=== PATIENT | male | born 1950 | race Caucasian/White ===

== ENCOUNTER 2017-09-18 19:21 | Inpatient (IN) | payer OTHER ==
[~2017-09-18] VITALS: Ht 172.7 cm; Wt 95.3 kg
[~2017-09-18 19:21] MED LIST: AMOXICILLIN875 M1 PO; BACTRIM DS TAB1 EACH PO
[2017-09-18 19:53] LABS: ABSOLUTE BASOPHIL COUNT 0 /CUMM (0.0-0.2); ABSOLUTE EOSINOPHIL COUNT 0.9 /CUMM (0.0-0.7); ABSOLUTE GRANULOCYTE CT 6.3 /CUMM (1.4-6.5); ABSOLUTE LYMPH COUNT 3.3 /CUMM (1.2-3.4); BASOPHIL % 0.4 % (0.0-2.0); EOSINOPHIL % 7.4 % (0-5); HEMATOCRIT 46.1 % (42-52); MEAN CORPUSCULAR HGB 30.3 PG (27.0-31.0); MEAN CORPUSCULAR HGB CONC 32.8 G/DL (33.0-37.0); MEAN CORPUSCULAR VOLUME 92.1 FL (80.0-94.0); MEAN PLATELET VOLUME 7.3 FL (7.4-10.4); PLATELET COUNT 473 /CUMM (130-400); WHITE BLOOD CELL COUNT 11.5 /CUMM (4.8-10.8)
--- NOTE | 2017-09-18 20:09 | ED DYSPNEA/ASTHMA COMPLAINT ---
History of Present Illness General Chief Complaint: General Adult Stated Complaint: SOB Source: patient, family Exam Limitations: no limitations Vital Signs & Intake/Output Vital Signs & Intake/Output Vital Signs Date Time Temp Pulse Resp B/P B/P Pulse O2 O2 Flow FiO2 Mean Ox Delivery Rate 09/18 2200 94 18 140/78 97 Nasal 2.0L Cannula 09/188 98 Nasal 2.0L Cannula 09/18 2022 98 Nasal 2.0L Cannula 09/18 1924 98.1 77 24 192/87 92 Room Air Allergies Coded Allergies: NO KNOWN ALLERGIES (NONE 09/02/17) Reconcile Medications Albuterol Sulfate (Proair Hfa) 90 MCG HFA.AER.AD 2 PUF INH Q4-6 PRN PRN COPD (Reported) Umeclidinium Brm/Vilanterol Tr (Anoro Ellipta 62.5-25 Mcg INH) 62.5 MCG-25 MCG/ ACTUATION BLST.W.DEV COPD (Reported) Triage Note: REPORTS SOB THAT STARTED YESTERDAY. REPORTS + HX OF COPD. 92% AT [facility]. Triage Nurses Notes Reviewed? yes HPI: Patient presents with increasing shortness of breath and wheezing. Patient has also had a nonproductive cough. Patient is in the process of being worked up for probable COPD. Patient has been using his inhalers without any relief. Patient denies any orthopnea however states that when he is laying down he feels he can't breathe secondary to the wheezing and nonproductive cough and that he feels better while sitting up but he denies any feelings of drowning or being choked. Patient denies any chest pain or palpitations. Patient has had some chills but no fevers. There is no anorexia. There is no nausea or vomiting. Past History Travel History Traveled to [place] past 21 day No Medical History Any Pertinent Medical History? see below for history Respiratory: COPD Endocrine: diabetes Surgical History Surgical History: non-contributory Psychosocial History What is your primary language Par[place]ayan Tobacco Use: Quit >30 days ago ETOH Use: occasional use Illicit Drug Use: denies illicit drug use Family History Hx Contributory? No Review of Systems Review of Systems Constitutional: Reports: no symptoms. EENTM: Reports: no symptoms. Respiratory: Reports: see HPI, short of breath, wheezing. Cardiovascular: Reports: no symptoms. GI: Reports: no symptoms. Genitourinary: Reports: no symptoms. Musculoskeletal: Reports: no symptoms. Skin: Reports: no symptoms. Neurological/Psychological: Reports: no symptoms. Hematologic/Endocrine: Reports: no symptoms. Immunologic/Allergic: Reports: no symptoms. All Other Systems: Reviewed and Negative Physical Exam Physical Exam General Appearance: well developed/nourished, alert, awake, anxious, moderate distress Respiratory: decreased breath sounds, wheezing Core Measures ACS in differential dx? No CVA/TIA Diagnosis No Sepsis Present: No Sepsis Focused Exam Completed? No Progress Differential Diagnosis: asthma, AMI, bronchitis, CHF, COPD, pulmonary embolism, pneumonia, pneumothorax Plan of Care: Orders Procedure Date/time Status Regular Diet 09/19 B Active Patient Data 09/18 2252 Active Intake & Output 09/18 2249 Active ED Holding Orders 09/18 2241 Active Admit to inpatient 09/18 2241 Active Vital Signs 09/18 2241 Active Code Status 09/18 2241 Active BLOOD CULTURE 09/18 2210 Active URINALYSIS 09/18 1946 Active MIXED VENOUS BLOOD GAS (GEN) 09/18 1930 Active TROPONIN LEVEL 09/18 1930 Complete CBC WITHOUT DIFFERENTIAL 09/18 1930 Complete BASIC METABOLIC PANEL 09/18 1930 Complete EKG 09/18 1920 Active Laboratory Tests 09/18/171944: Anion Gap 10, Estimated GFR > 60, BUN/Creatinine Ratio 28.8 H, Glucose 125 H, Calcium 9.0, Troponin I < 0.01, CBC w Diff NO MAN DIFF REQ, RBC 5.00, MCV 92.1, MCH 30.3, MCHC 32.8 L, RDW 14.0, MPV 7.3 L, Gran % 55.0, Lymphocytes % 28.7, Monocytes % 8.5, Eosinophils % 7.4 H, Basophils % 0.4, Absolute Granulocytes 6.3, Absolute Lymphocytes 3.3, Absolute Monocytes 1.0 H, Absolute Eosinophils 0.9, Absolute Basophils 0 Microbiology 09/18 2049 BLOOD: Blood Culture - RECD 09/18 2034 BLOOD: Blood Culture - RECD Diagnostic Imaging: Viewed by Me: Radiology Read. Discussed w/RAD: Radiology Read. CXR Impression: PATIENT: SIRIA DRAKE PRESENT AGE: 67 PATIENT ACCOUNT NO: [id number] : 52 LOCATION: [facility] [place] ORDERING PHYSICIAN: Olga LOYA SERVICE DATE: 09/18/17 EXAM TYPE: RAD - XRY-CHEST XRAY, TWO VIEWS EXAMINATION: XR CHEST CLINICAL INFORMATION: Cough and shortness of breath COMPARISON: None TECHNIQUE: 2 views of the chest were obtained. FINDINGS: No significant abnormality is noted involving the heart, lungs, mediastinum, bony thorax or soft tissues. IMPRESSION: Unremarkable examination. DICTATED BY: Mak Jules MD DATE/TIME DICTATED:09/18/172126 PATIENT TRANSPORTATION DRIVER :ENID DATE/TIME TRANSCRIBED:09/18/172126 CONFIDENTIAL, DO NOT COPY WITHOUT APPROPRIATE AUTHORIZATION. <Electronically signed in Other Vendor System> SIGNED BY: Mak Jules MD 09/18/172131 Initial ED EKG: NSR, no ST T wave changes Departure Departure Disposition: STILL A PATIENT Condition: Stable Clinical Impression Primary Impression: COPD exacerbation Referrals: Sander Morales MD (PCP/Family) Departure Forms: Customer Survey General Discharge Information Admission Note Spoke With: Javed Romano MD Documentation of Exam: Documentation of any treatments & extenuating circumstances including Concerns Regarding Discharge (functional status, medication knowledge or non-compliance, living conditions, etc.) that warrant an admission rather than observation: [ Nebulizers, IV steroids, IV antibiotics, pulmonary consultation, patient is still wheezing despite the above treatments. Patient is at high risk for early discharge.] Critical Care Note Critical Care Note Critical Care Time: non-applicable
--- NOTE | 2017-09-18 21:32 | RADIOLOGY REPORT ---
EXAMINATION: XR CHEST CLINICAL INFORMATION: Cough and shortness of breath COMPARISON: None TECHNIQUE: 2 views of the chest were obtained. FINDINGS: No significant abnormality is noted involving the heart, lungs, mediastinum, bony thorax or soft tissues. IMPRESSION: Unremarkable examination.
[2017-09-18] MEDS ORDERED: PROAIR HFA8.5 GM INH (23:10)
[2017-09-18] MEDS ORDERED: ANORO ELLIPTA1 EACH (23:10)
--- NOTE | 2017-09-18 23:13 | History & Physical ---
Fanta Hernandez 09/18/17 9822: General Information and HPI MD Statement: I have seen and personally examined SIRIA RUTHERFORD and documented this H&P. The patient is a 67 year old M who presented with a patient stated chief complaint of [SOB]. Source of Information: patient, old records Exam Limitations: no limitations History of Present Illness: Mr. Rutherford is a 67yo M w/ PMH of COPD, Pre-diabetes (last HbA1c 6.1), presented with shortness of breath with productive cough for 1 day started Monday afternoon while shopping. Patient had no previous pulmonary function done or previous admissions including hospital for COPD, and is currently in the process of being worked up for possible COPD. He sees Dr. 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 Recent had new dog after the old dog . He had previous episodes of Pneumonia/bronchitis x 3 times in the year, and had been had difficulty breathing history since 03/2017. Patient had been trying to use his inhalers without relief at home. However denied in orthopnea, however stated that when he was lying down he could not breathe secondary to wheezing. No previous echo was found in the system. Patient also endorsed nonproductive coughing that he felt better when he sits up. Patient with some chills but denies any fevers. Last night at home he was coughing up badly with whitish sputum that kept him not sleeping well. Patient was last seen in [place] [facility] in August for left upper extremity swelling which no DVT was found. She was last seen in 2013 for fall on ice where head CT showed no remarkable findings. During our clinical interaction, patient denied fever/night sweat/weight change/ Chest Pain/Palpitation/Abdominal pain/bowel movement/urinary abnormality, or other skin/musculoskeletal/neurological disorders/mood change/insomnia/dietary/ appetite change. -Smoking: Quitted x 1 month after smoking x 10 years, smoked 4-5 cigars daily. -Alcohol: Occasional use -Rec Drugs: Denied recent drug use Allergies/Medications Allergies: Coded Allergies: NO KNOWN ALLERGIES (NONE 09/02/17) Home Med list Albuterol Sulfate (Proair Hfa) 90 MCG HFA.AER.AD 2 PUF INH Q4-6 PRN PRN COPD (Reported) Lisinopril 5 MG TABLET 1 TAB PO DAILY PRECAUTION PER PT (Reported) Metformin HCl (Metformin HCl ER) 500 MG TAB.ER.24 1 TAB PO DAILY DIABETES ( Reported) Umeclidinium Brm/Vilanterol Tr (Anoro Ellipta 62.5-25 Mcg INH) 62.5 MCG-25 MCG/ ACTUATION BLST.W.DEV COPD (Reported) Past History Travel History Traveled to [place] past 21 day No Medical History Respiratory: COPD Endocrine: diabetes Surgical History Surgical History: non-contributory Past Family/Social History Psychosocial History ETOH Use: occasional use Illicit Drug Use: denies illicit drug use Review of Systems Review of Systems Constitutional: Reports: see HPI. Exam & Diagnostic Data Last 24 Hrs of Vital Signs/I&O Vital Signs Date Time Temp Pulse Resp B/P B/P Pulse O2 O2 Flow FiO2 Mean Ox Delivery Rate 09/18 2333 98.3 76 20 150/77 96 Nasal 2.0L Cannula 09/18 2200 94 18 140/78 97 Nasal 2.0L Cannula 09/188 98 Nasal 2.0L Cannula 09/18 2022 98 Nasal 2.0L Cannula 09/18 1924 98.1 77 24 192/87 92 Room Air Intake & Output 09/19 0800 09/19 0000 09/18 1600 Intake Total 530 Output Total Balance 530 Intake, IV 250 Intake, Oral 280 Patient 95.254 kg Weight Weight Reported by Patient Measurement Method Physical Exam General Appearance Alert, Oriented X3, Cooperative, No Acute Distress Skin No Rashes, No Breakdown, No Significant Lesion Skin Temp/Moisture Exam: Warm/Dry Sepsis Skin Exam (color): Normal for Ethnicity HEENT Atraumatic, PERRLA Neck Supple, No JVD Cardiovascular Regular Rate, Normal S1, Normal S2 Lungs Normal Air Movement, scattered wheezing Abdomen Normal Bowel Sounds, Soft, No Tenderness Neurological Normal Speech, Strength at 5/5 X4 Ext Extremities Normal Pulses, No Tenderness/Swelling, Trace edema Last 24 Hrs of Labs/Saeid: Laboratory Tests 09/18/17 6054: Urine Color YEL, Urine Clarity CLEAR, Urine pH 6.0, Ur Specific [place] 1.020, Urine Protein NEG, Urine Ketones TRACE H, Urine Nitrite NEG, Urine Bilirubin NEG, Urine Urobilinogen 0.2, Ur Leukocyte Esterase NEG, Ur Microscopic SEDIMENT EXAMINED, Urine RBC Pending, Urine Hemoglobin TRACE-INTACT H, Urine Glucose NEG 09/18/171944: Anion Gap 10, Estimated GFR > 60, BUN/Creatinine Ratio 28.8 H, Glucose 125 H, Calcium 9.0, Troponin I < 0.01, CBC w Diff NO MAN DIFF REQ, RBC 5.00, MCV 92.1, MCH 30.3, MCHC 32.8 L, RDW 14.0, MPV 7.3 L, Gran % 55.0, Lymphocytes % 28.7, Monocytes % 8.5, Eosinophils % 7.4 H, Basophils % 0.4, Absolute Granulocytes 6.3, Absolute Lymphocytes 3.3, Absolute Monocytes 1.0 H, Absolute Eosinophils 0.9, Absolute Basophils 0 Microbiology 09/18 2049 BLOOD: Blood Culture - RECD 09/18 2034 BLOOD: Blood Culture - RECD Diagnostic Data EKG Results NSR Assessment/Plan Assessment: On admission, Vitals: Stable afebrile, HR 94, BP 140/78, 97% on 2LNC -CBC: Mild leukocytosis 11.5, PLT 473, otherwise unremarkable -BMP: Unremarkable -CXR: Unremarkable examination -EKG: NSR w/o significant ST-T abnormalities. -Interventions in ER: Albuterol/Atrovent/Proventil, ceftriaxone/azithromycin 1, Solu-Medrol 125 IV 1 Problem list & Assessment: Present with clinical picture of COPD exacerbation, however without any official diagnosis from the previous pulmonary function test. ER portable x-ray showed no acute pulmonary findings at this point. Patient had no signs of infection/ pneumonia/bronchitis despite multiple episodes in the past. At this point will treat for COPD extubation, and may contact the insole presser outpatient for test results if needed. 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 DVT prophylaxis Lovenox + ALPS Regular Diet Full Code As Ranked By This Provider Problem List: 1. COPD exacerbation Core Measures/Misc (01/29) Acute Coronary Syndrome ACS Diagnosis: No Congestive Heart Failure Congestive Heart Failure Diagnosis No Cerebrovascular Accident CVA/TIA Diagnosis: No VTE (View Protocol) VTE Risk Factors Age>40 No Mechanical VTE Prophylaxis d/t N/A MechProphylax Ordered No VTE Pharm Prophylaxis d/t NA PharmProphylax ordered Sepsis (View protocol) Sepsis Present: No Landon Jones 09/19/17 0131: Resident Review Statement Resident Statement: examined this patient, discussed with recruiting intern Other Findings: Patient is a 67-year-old male with past medical history of COPD(recently diagnosed), prediabetes, recurrent bronchitis and pneumonia presented to the ED with a chief complaint of worsening shortness of breath and productive cough for one day. Patient reports that he started having shortness of breath started around Monday while he was shopping. He had cough with productive white sputum. His symptoms worsened over the weekend and he was forced to come to the ED. Patient has been recently diagnosed COPD and has been following up with insole presser Dr. Ho in [place]. Recent pulmonary function tests done in August. He had recurrent bronchitis and 2 episodes of pneumonia since March last year. He has been have been using inhalers since that time however his shortness of breath never went away completely. He recently got a new dog about 3 weeks back which could have also stimulated the COPD attack. Patient is an ex-smoker, quit about a month back. Was smoking about 4 cigarettes for the past 10 years. 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 He handled a lot of chemicals while working in the the [employer] industry. reports that his insole presser recently mentioned appearance of asbestos plaques on the chest x-ray. Patient denies any chest pain, palpitations, nausea, vomiting, abdominal pain, urinary or bowel symptoms. He was recently seen in the ER on 09/08 for left hand cellulitis and was given a course of Bactrim which the patient completed. Vitals in the ED at admission was significant for high blood pressure 192/87. Labs: , White count of 11.5 with no left shift, troponin 0.01 Chest x-ray was unremarkable Physical examination General: Awake, alert, oriented 3, no acute distress HEENT PERRLA, EOMI, nasal cannula Chest: Bilateral expiratory wheezes, rhonchi CVS: S1 and S2 heard, no murmurs Abdomen: BS positive, no tenderness Extremities: No edema, pulses intact Assessment Acute hypoxic respiratory failure secondary to COPD exacerbation Occupational exposure to asbestos/multiple chemicals Recent exposure to new Prediabetes Hypertension Plan Admit to [facility] Vitals per protocol Maintain oxygen saturation above 92% TR nebs [id number] Received IV Solu-Medrol in the day. Continue Solu-Medrol 40 every12 hrs IV Azithromycin daily No signs of infection at this time. Will watch off antibiotics. PFTs done in August. Try to get old records from insole presser Dr. Vela' office in [place] 3 times a day Accu-Cheks, NovoLog sliding scale Continue lisinopril for high blood pressure DVT prophylaxis subcutaneous Lovenox Full code Javed Romano 09/19/17 0528: Attending MD Review Statement Attending Statement Attending MD Statement: examined this patient, discuss w/resident/PA/[employer] CREWMEMBER, agreed w/resident/PA/[employer] CREWMEMBER, reviewed EMR data (avail), reviewed images, amended to note Attending Assessment/Plan: CC: Shortness of breath PMH: Prediabetes,? HTN Patient came to ER for shortness of breath. He states that he's been noticing increasing shortness of breath and wheezing since last few days, associated with nonproductive cough. He denies any chest pain, chest tightness, palpitation, diaphoresis, fever, chills, syncope or presyncope, orthopnea, leg edema. Patient states that he has been dealing with the shortness of breath since March, is under investigation for suspected COPD and/or asbestos lung disease. Patient underwent pulmonary function test and yet to hear back the results. Meanwhile he was started on inhaler therapy by the insole presser. He was using a rescue inhaler at home for this current worsening of shortness of breath without much relief. Patient states that he has been treated for bronchitis at least 4 times since March, he also had pneumonia in March. He states that he takes lisinopril for her kidneys given his prediabetes but denies having hypertension. He also has seasonal allergies to pollen and asthma Vitals: Temperature 98.1, pulse 77, RR 24, blood pressure 192/87 improved to 140 /78 without treatment, saturating 92% on 2 L nasal cannula. On exam: A O 3, cooperative, no acute distress, neck supple, JVD normal, no lymphadenopathy, mucosa moist, no focal neurological deficit, no dependent edema , no obvious skin rashes or inflammation CVS: S1-S2, RRR. RS: Diminished air entry bilaterally, no obvious wheezing or crackles or Rales. Abdomen: Soft, NT, ND, bowel sounds present. CXR: No acute cardiopulmonary process Assessment and plan 67-year-old male with above-mentioned comorbidities present in ER for acute worsening of shortness of breath associated with nonproductive cough and wheezing since last few days. He has baseline shortness of breath since last March and is under investigation for restrictive/obstructive lung disease. Patient appears to have exacerbation of underlying lung disease. He also has seasonal allergies to pollen and asthma. He has extensive smoking history but also has exposure to asbestosis as he was in construction specialist for more than 35 years. His air entry is diminished bilaterally, requiring 2 L nasal cannula to saturate 92%, he was wheezing according to ER physician. + COPD exacerbation + History of prediabetes - Admit to general medicine - Try to wean off oxygen - IV methylprednisolone 40 mg every 12 hour - IV azithromycin - TRC nebulization with albuterol and ipratropium scheduled and when necessary - Mucinex scheduled twice a day - Continue home doses of lisinopril, continue sliding scale insulin hold metformin - Adequate pain control - DVT prophylaxis - Outpatient pulmonology follow-up
[2017-09-18] MEDS ORDERED: LISINOPRIL5 M1 PO (23:22)
[2017-09-18] MEDS ORDERED: METFORMIN HCL500 M2 PO (23:22)
[2017-09-19 01:08] VITALS: BP 148/72
--- NOTE | 2017-09-19 05:29 | Admission Certification ---
Admission Certification Certification Statement - As attending physician, I certify that at the time of - admission, based on clinical presentation, severity of - symptoms, need for further diagnostic testing and - therapeutic interventions, and risk of adverse outcomes - without in-hospital treatment, in my clinical assessment, - this patient requires an acute hospital stay for a minimum - of two nights or longer. I have also considered psychsocial - factors such as support system, advanced age, financial - issues, cognitive issues, and failed out-patient treatments, - past re-admission history, safety of patient, and lack of - compliance as applicable. Specific rationale supporting this admission is: COPD exacerbation
[2017-09-19 06:41] VITALS: BP 136/68
--- NOTE | 2017-09-19 07:44 | PN- Housestaff ---
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 He states that he is feeling better since admission. Vitals are stable overnight and he is satting 94% on 2L. He is ambulated and sats 93% on room air. Denies cough, chest pain, dyspnea. Review of Systems Constitutional: Reports: no symptoms. Cardiovascular: Reports: no symptoms. Respiratory: Reports: no symptoms. Gastrointestinal: Reports: no symptoms. Genitourinary: Reports: no symptoms. Musculoskeletal: Reports: no symptoms. Skin: Reports: no symptoms. Objective Last 24 Hrs of Vital Signs/I&O Vital Signs Date Time Temp Pulse Resp B/P B/P Pulse O2 O2 Flow FiO2 Mean Ox Delivery Rate 09/19 1414 97.8 63 20 130/70 95 Room Air 09/19 1144 Room Air Room Air 09/19 0832 138/80 09/19 0800 Nasal 2.0L Cannula 09/19 0641 97.5 68 20 136/68 94 Nasal 2.0L Cannula 09/19 0120 96 Nasal 2.0L Cannula 09/19 0108 97.4 73 20 148/72 96 Nasal 2.0L Cannula 09/18 2333 98.3 76 20 150/77 96 Nasal 2.0L Cannula 09/18 2200 94 18 140/78 97 Nasal 2.0L Cannula 09/18 2118 98 Nasal 2.0L Cannula 09/18 2023 98 Nasal 2.0L Cannula 09/18 1925 98.1 77 24 192/87 92 Room Air Intake & Output 09/19 1600 09/19 0800 05/08 0000 Intake Total 360 530 Output Total Balance 360 530 Intake, IV 250 Intake, Oral 360 280 Patient 210 lb 210 lb Weight Weight Reported by Patient Reported by Patient Measurement Method Physical Exam General Appearance: Alert, Oriented X3, Cooperative, No Acute Distress Skin: No Rashes, No Breakdown, No Significant Lesion Skin Temp/Moisture Exam: Warm/Dry HEENT: Atraumatic, PERRLA, EOMI, Mucous Membr. moist/pink Cardiovascular: Regular Rate, Normal S1, Normal S2, No Murmurs Lungs: Clear to Auscultation Abdomen: Normal Bowel Sounds, Soft, No Tenderness Neurological: Normal Speech Current Medications: Current Medications Sig/Kelli Start time Last Medication Dose Route Stop Time Status Admin Acetaminophen 325 MG Q6 PRN 09/19 0100 AC PO Albuterol Sulfate 3 ML BID 09/19 1200 AC 09/19 INH 1148 Albuterol Sulfate 2 PUF Q4-6 PRN PRN 09/19 0045 AC INH Albuterol Sulfate 3 ML ONCE ONE 09/18 2114 DC 09/18 INH 09/19 2115 211 Albuterol Sulfate 3 ML ONCE ONE 09/19 1999 DC 09/18 INH 09/18 Azithromycin 250 MG DAILY 09/20 899 AC PO Azithromycin 500 MG DAILY 09/19 899 DC 09/19 Sodium Chloride 250 ML IV 0858 Azithromycin 500 MG ONCE ONE 09/18 2214 DC 09/18 Sodium Chloride 250 ML IV 09/18 2314 2223 Budesonide/ 2 PUF BID 09/19 899 AC 09/19 Formoterol Fumarate INH 0832 Ceftriaxone Sodium 0 .STK-MED ONE 09/18 2217 DC .ROUTE Ceftriaxone Sodium 1,000 MG ONCE ONE 09/18 2214 DC 09/18 IV 09/18 2216 2223 Enoxaparin Sodium 40 MG DAILY 09/19 899 AC 09/19 SC 0832 Insulin Aspart 0 TIDAC 09/20 799 AC 09/19 SC 1804 Ipratropium [place] 2.5 ML ONCE ONE 09/19 1999 DC 09/18 INH 09/18 Lisinopril 5 MG DAILY 09/19 899 AC 09/19 PO 0832 Methylprednisolone 40 MG Q12 09/19 0800 AC 09/19 IV 0832 Methylprednisolone 40 MG Q8 09/19 599 DC 09/19 IV 0523 Methylprednisolone 0 .STK-MED ONE 09/18 2033 DC .ROUTE Methylprednisolone 125 MG ONCE ONE 09/18 2014 DC 07 IV 09/18 Non-Formulary 0 SEE ADMIN CRITERIA 09/19 0045 CAN Medication ANY Patient Medication 1 ED ONE ONE 09/19 1814 MA Teaching ED 09/20 1815 Last 24 Hrs of Lab/Saeid Results Last 24 Hrs of Labs/Mics: Laboratory Tests 09/19/17 0803: CBC w Diff NO MAN DIFF REQ, RBC 4.92, MCV 92.2, MCH 30.1, MCHC 32.6 L, RDW 13.7 , MPV 7.9, Gran % 87.2 H, Lymphocytes % 12.1 L, Monocytes % 0.4 L, Eosinophils % 0.1, Basophils % 0.2, Absolute Granulocytes 7.4 H, Absolute Lymphocytes 1.0 L, Absolute Monocytes 0 L, Absolute Eosinophils 0, Absolute Basophils 0 09/18/172343: Urine Color YEL, Urine Clarity CLEAR, Urine pH 6.0, Ur Specific [place] 1.020, Urine Protein NEG, Urine Ketones TRACE H, Urine Nitrite NEG, Urine Bilirubin NEG, Urine Urobilinogen 0.2, Ur Leukocyte Esterase NEG, Ur Microscopic SEDIMENT EXAMINED, Urine RBC RARE, Urine Bacteria RARE H, Urine Hemoglobin TRACE-INTACT H, Urine Glucose NEG 09/18/171944: Anion Gap 10, Estimated GFR > 60, BUN/Creatinine Ratio 28.8 H, Glucose 125 H, Calcium 9.0, Troponin I < 0.01, CBC w Diff NO MAN DIFF REQ, RBC 5.00, MCV 92.1, MCH 30.3, MCHC 32.8 L, RDW 14.0, MPV 7.3 L, Gran % 55.0, Lymphocytes % 28.7, Monocytes % 8.5, Eosinophils % 7.4 H, Basophils % 0.4, Absolute Granulocytes 6.3, Absolute Lymphocytes 3.3, Absolute Monocytes 1.0 H, Absolute Eosinophils 0.9, Absolute Basophils 0 Microbiology 09/18 2049 BLOOD: Blood Culture - RES 09/18 2034 BLOOD: Blood Culture - RES Assessment/Plan Assessment: Patient is a 67-year-old male with past medical history of COPD (recently diagnosed), prediabetes, recurrent bronchitis and pneumonia that presented to the ED with a chief complaint of worsening shortness of breath and productive cough for one day. Patient reports that he started having shortness of breath three days ago food shopping. He states he also had cough with productive white sputum. Patient has been recently diagnosed COPD and has been following up with machine farmworker Dr. Ho in [place]. Recent pulmonary function tests done in August but patient unsure of exact results. He had recurrent bronchitis and 2 episodes of pneumonia since March last year and he has been have been using inhalers since that time however his shortness of breath never completely dissipated. He recently got a new dog about 3 weeks back which could have also stimulated the COPD attack. Patient is an ex-smoker, quit about a month back. Was smoking about 4 cigarettes for the past 10 years. 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 reports that his machine farmworker recently mentioned appearance of asbestos plaques on the chest x-ray. He was recently seen in the ER on 09/08 for left hand cellulitis and was given a course of Bactrim which the patient completed. Vitals: Stable afebrile, HR 94, BP 140/78, 97% on 2LNC. CXR: Unremarkable examination. Interventions in ER: Albuterol/Atrovent/Proventil, ceftriaxone/ azithromycin 1, Solu-Medrol 125 IV 1. Patient presents with clinical picture of COPD exacerbation, however without any official diagnosis from the previous pulmonary function test results. Negative CXR. Patient had no signs of infection/pneumonia/bronchitis despite multiple episodes in the past. Clinically appears to be a COPD exacerbation so we will at this point treat him as such. Patient also reports prediabetes and a HbA1c in the low 6's, reportedly takes metformin. Plan -Continue to monitor in gen med O2 sats -Azithromycin oral for 5 days DVT prophylaxis Lovenox + ALPS Regular Diet Full Code Problem List: 1. COPD exacerbation Pain Ratin Pain Location: na Pain Goal: Remain pain free Pain Plan: na Tomorrow's Labs & Rationales: cbc bep Zaire PALACIOS,Ben 09/19/17 1202: Attending MD Review Statement Attending Statement Attending MD Statement: examined this patient, discuss w/resident/PA/ENGINEERING FACULTY, agreed w/resident/PA/ENGINEERING FACULTY, discussed with family, reviewed EMR data (avail), discussed with nursing, discussed with case mgmt, amended to note Attending Assessment/Plan: Patient seen and examined. present at bedside. Reports feeling better compared to presentation. Denies chest pain or shortness of breath at rest. Denies palpitations. He is saturating 94-95% on room air. On examination he has adequate entry bilaterally with mild expiratory rhonchi. Abdomen soft and nontender. He has no peripheral edema. Plan: -Continue bronchodilator therapy. Continue systemic steroid therapy with Solu- Medrol IV every 12 hours today. -Mobilize patient and check ambulatory pulse oximetry. -Continue antibiotic therapy with azithromycin. Transition to oral dose and complete 5 days of therapy. -Repeat CBC and serum chemistry in a.m. only if there is a change in patient's clinical status.
[2017-09-19 09:02] LABS: ABSOLUTE BASOPHIL COUNT 0 /CUMM (0.0-0.2); ABSOLUTE EOSINOPHIL COUNT 0 /CUMM (0.0-0.7); ABSOLUTE GRANULOCYTE CT 7.4 /CUMM (1.4-6.5); ABSOLUTE MONOCYTE COUNT 0 /CUMM (0.10-0.60); BASOPHIL % 0.2 % (0.0-2.0); EOSINOPHIL % 0.1 % (0-5); HEMATOCRIT 45.4 % (42-52); MEAN CORPUSCULAR HGB 30.1 PG (27.0-31.0); MEAN CORPUSCULAR HGB CONC 32.6 G/DL (33.0-37.0); MEAN CORPUSCULAR VOLUME 92.2 FL (80.0-94.0); MEAN PLATELET VOLUME 7.9 FL (7.4-10.4); PLATELET COUNT 399 /CUMM (130-400); RBC DISTRIBUTION WIDTH 13.7 % (11.5-14.5); RED BLOOD CELL CT 4.92 /CUMM (4.70-6.10)
[2017-09-19 09:30] LABS: GRANULOCYTE % 87.2 % (42.2-75.2)
[2017-09-19 10:25] LABS: WHITE BLOOD CELL COUNT 8.5 /CUMM (4.8-10.8)
[2017-09-19 14:14] VITALS: BP 130/70
[2017-09-19 22:38] VITALS: BP 122/60
[2017-09-20 06:21] VITALS: BP 118/64
--- NOTE | 2017-09-20 07:36 | PN- Housestaff ---
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 He is on room air satting 94%. He notes a continued mild dry cough. Review of Systems Constitutional: Reports: no symptoms. Respiratory: Reports: cough. Objective Last 24 Hrs of Vital Signs/I&O Vital Signs Date Time Temp Pulse Resp B/P B/P Pulse O2 O2 Flow FiO2 Mean Ox Delivery Rate 09/20 1446 97.8 66 20 110/75 95 Room Air 09/20 1050 93 Room Air 09/20 0824 118/60 09/20 0621 97.5 65 20 118/64 94 Room Air 09/20 0000 Room Air 09/19 2238 98.1 84 20 122/60 91 Room Air 09/19 2012 94 Room Air Intake & Output 09/20 1600 09/20 0800 09/20 0000 Intake Total 200 120 300 Output Total Balance 200 120 300 Intake, Oral 200 120 300 Physical Exam General Appearance: Alert, Oriented X3, Cooperative, No Acute Distress Neck: Supple, No JVD Cardiovascular: Regular Rate, Normal S1, Normal S2, No Murmurs Lungs: mild wheezing on left Abdomen: Normal Bowel Sounds, Soft, No Tenderness Extremities: No Clubbing, No Cyanosis, No Edema Current Medications: Current Medications Sig/Kelli Start time Last Medication Dose Route Stop Time Status Admin Acetaminophen 325 MG Q6 PRN 09/19 0100 AC PO Albuterol Sulfate 3 ML BID 09/19 1200 AC 09/20 INH 1056 Albuterol Sulfate 2 PUF Q4-6 PRN PRN 09/19 0045 AC INH Azithromycin 250 MG DAILY 09/20 899 AC 09/20 PO 0824 Budesonide/ 2 PUF BID 09/19 899 AC 09/20 Formoterol Fumarate INH 0824 Enoxaparin Sodium 40 MG DAILY 09/19 899 AC 09/20 SC 0824 Insulin Aspart 0 TIDAC 09/20 799 AC 09/19 SC 1804 Lisinopril 5 MG DAILY 09/19 899 AC 09/20 PO 0824 Methylprednisolone 40 MG Q12 09/19 899 AC 09/20 IV 0824 Patient Medication 1 ED ONE ONE 09/20 1230 DC 09/20 Teaching ED 09/20 1231 1224 Patient Medication 1 ED ONE ONE 09/19 181 [facility] 09/19 181 Assessment/Plan Assessment: Patient is a 67-year-old male with past medical history of COPD (recently diagnosed), prediabetes, recurrent bronchitis and pneumonia that presented to the ED with a chief complaint of worsening shortness of breath and productive cough for one day. Patient reports that he started having shortness of breath three days ago food shopping. He states he also had cough with productive white sputum. Patient has been recently diagnosed COPD and has been following up with welt rougher Dr. Ho in [place]. Recent pulmonary function tests done in August but patient unsure of exact results. He had recurrent bronchitis and 2 episodes of pneumonia since March last year and he has been have been using inhalers since that time however his shortness of breath never completely dissipated. He recently got a new dog about 3 weeks back which could have also stimulated the COPD attack. Patient is an ex-smoker, quit about a month back. Was smoking about 4 cigarettes for the past 10 years. 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 reports that his welt rougher recently mentioned appearance of asbestos plaques on the chest x-ray. He was recently seen in the ER on 09/08 for left hand cellulitis and was given a course of Bactrim which the patient completed. Vitals: Stable afebrile, HR 94, BP 140/78, 97% on 2LNC. CXR: Unremarkable examination. Interventions in ER: Albuterol/Atrovent/Proventil, ceftriaxone/ azithromycin 1, Solu-Medrol 125 IV 1. Patient presents with clinical picture of COPD exacerbation, however without any official diagnosis from the previous pulmonary function test results. Negative CXR. Patient had no signs of infection/pneumonia/bronchitis despite multiple episodes in the past. Clinically appears to be a COPD exacerbation so we will at this point treat him as such. Patient also reports prediabetes and a HbA1c in the low 6's, reportedly takes metformin. Plan -Continue to monitor in gen med tomorrow O2 sats -Azithromycin oral for 5 days DVT prophylaxis Lovenox + ALPS Regular Diet Full Code Problem List: 1. COPD exacerbation Pain Ratin Pain Location: na Pain Goal: Remain pain free Pain Plan: na Tomorrow's Labs & Rationales: na [place] MD,Felicianoheribertosha 09/20/17 1249: Attending MD Review Statement Attending Statement Attending MD Statement: examined this patient, discuss w/resident/PA/REMOTE OPERATIONS PRODUCER, agreed w/resident/PA/REMOTE OPERATIONS PRODUCER, reviewed EMR data (avail), discussed with nursing, discussed with case mgmt, amended to note Attending Assessment/Plan: Patient seen and examined. Reports feeling better. e is not requiring oxygen supplementation. He denies sob at rest or with exertion. Denies chest schaeffer. On examination, he has adequate air-entry bilaterally with minimal rhonchi. Will continue solumedrol at current dose and transition to oral prednisone tomorrow.
[2017-09-20 14:46] VITALS: BP 110/75
[2017-09-20 22:55] VITALS: BP 124/80
[2017-09-21 06:54] VITALS: BP 134/76
[2017-09-21 08:42] VITALS: BP 126/80
--- NOTE | 2017-09-21 09:54 | PN- Housestaff ---
Rosalia PALACIOS,Paz 09/21/1754: Subjective Follow-up For: #COPD exacerbation pending rule out #Past medical history of pre-diabetes Subjective: patient seen and examined. no shortness of breath, no chest pain. Patient in bed eating breakfast. Review of Systems Constitutional: Reports: no symptoms. Cardiovascular: Reports: no symptoms. Respiratory: Reports: no symptoms. Gastrointestinal: Reports: no symptoms. Musculoskeletal: Reports: no symptoms. Objective Last 24 Hrs of Vital Signs/I&O Vital Signs Date Time Temp Pulse Resp B/P B/P Pulse O2 O2 Flow FiO2 Mean Ox Delivery Rate 09/21 0835 95 Room Air 09/21 0842 126/80 09/21 0800 Room Air 09/21 0654 97.6 64 16 134/76 97 Room Air 09/20 2255 98.0 68 18 124/80 94 Room Air 09/20 1927 94 Room Air Intake & Output 09/21 1600 09/21 0800 05 0000 Intake Total 300 500 Output Total Balance 300 500 Intake, Oral 300 500 Physical Exam General Appearance: Alert, Oriented X3, Cooperative, No Acute Distress Skin: No Rashes, No Breakdown, No Significant Lesion Skin Temp/Moisture Exam: Warm/Dry Sepsis Skin Exam (color): Normal for Ethnicity HEENT: EOMI, Mucous Membr. moist/pink Cardiovascular: Regular Rate, Normal S1, Normal S2, No Murmurs Lungs: Clear to Auscultation, Normal Air Movement Abdomen: Normal Bowel Sounds, Soft, No Tenderness Current Medications: Current Medications Sig/Kelli Start time Last Medication Dose Route Stop Time Status Admin Acetaminophen 325 MG Q6 PRN 09/19 0100 DCD PO Albuterol Sulfate 3 ML BID 09/20 1199 DCD 09/21 INH 0930 Albuterol Sulfate 2 PUF Q4-6 PRN PRN 09/19 0045 DCD INH Azithromycin 250 MG DAILY 09/20 899 DCD 09/21 PO 0842 Budesonide/ 2 PUF BID 09/19 899 DCD 09/21 Formoterol Fumarate INH 0842 Enoxaparin Sodium 40 MG DAILY 09/19 899 DCD 09/21 SC 0842 Insulin Aspart 0 TIDAC 09/20 799 DCD 09/21 SC 42 Lisinopril 5 MG DAILY 09/19 899 DCD 09/21 PO 0842 Methylprednisolone 40 MG ONCE ONE 09/21 929 DC 09/21 IV 09/21 0831 0940 Methylprednisolone 40 MG Q12 09/19 899 DC 09/20 IV 2028 Assessment/Plan Assessment: Patient is a 67-year-old male with past medical history of COPD (recently diagnosed), prediabetes, recurrent bronchitis and pneumonia that presented to the ED with a chief complaint of worsening shortness of breath and productive cough for one day. Patient reports that he started having shortness of breath three days ago food shopping. He states he also had cough with productive white sputum. Patient has been recently diagnosed COPD and has been following up with wood pole treater Dr. Ho in [place]. Recent pulmonary function tests done in August but patient unsure of exact results. He had recurrent bronchitis and 2 episodes of pneumonia since March last year and he has been have been using inhalers since that time however his shortness of breath never completely dissipated. He recently got a new dog about 3 weeks back which could have also stimulated the COPD attack. Patient is an ex-smoker, quit about a month back. Was smoking about 4 cigarettes for the past 10 years. 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 reports that his wood pole treater recently mentioned appearance of asbestos plaques on the chest x-ray. He was recently seen in the ER on 09/08 for left hand cellulitis and was given a course of Bactrim which the patient completed. Vitals: Stable afebrile, HR 94, BP 140/78, 97% on 2LNC. CXR: Unremarkable examination. Interventions in ER: Albuterol/Atrovent/Proventil, ceftriaxone/ azithromycin 1, Solu-Medrol 125 IV 1. Patient presents with clinical picture of COPD exacerbation, however without any official diagnosis from the previous pulmonary function test results. Negative CXR. Patient had no signs of infection/pneumonia/bronchitis despite multiple episodes in the past. Clinically appears to be a COPD exacerbation so we will at this point treat him as such. Patient also reports prediabetes and a HbA1c in the low 6's, reportedly takes metformin. Plan -Continue to monitor in gen med O2 sats -Azithromycin oral for 5 days, discharge with remaining 2 days DVT prophylaxis Lovenox + ALPS Regular Diet Full Code Problem List: 1. COPD exacerbation Pain Ratin Pain Location: na Pain Goal: Remain pain free Pain Plan: na Tomorrow's Labs & Rationales: farhan Tai MD,Ben 09/21/17 1136: Attending MD Review Statement Attending Statement Attending MD Statement: examined this patient, discuss w/resident/PA/STRATEGY SPECIALIST, agreed w/resident/PA/STRATEGY SPECIALIST, reviewed EMR data (avail), discussed with nursing, discussed with case mgmt, amended to note Attending Assessment/Plan: Patient seen and examined. Resting comfortably not in any acute distress. Reports feeling well this morning. Ambulating freely not requiring oxygen supplementation. Denies cough. Denies shortness of breath with exertion. On examination he has adequate entry bilaterally with no added sounds. He is medically stable to be discharged home today. He is to continue on his bronchodilator regimen as prescribed by his wood pole treater at home. He will be discharged on a prednisone taper. He has been advised to follow-up with his wood pole treater service as an outpatient
[2017-09-21] MEDS ORDERED: PREDNISONE10 M2 PO (09:58)
--- NOTE | 2017-09-21 10:16 | Patient Discharge Instructions ---
Discharge Instructions General Discharge Information You were seen/treated for: COPD exacerbation Special Instructions: 1. follow up with your PCP in one week 2. follow up with your software applications specialist Dr. Ho in one week 3. follow prednisone taper schedule Diet Continue normal diet: Yes Activity Full Activity/No Limits: Yes (as tolerated) Acute Coronary Syndrome Inclusion Criteria At DC or during hospital stay patient has or had the following: ACS DIAGNOSIS No Discharge Core Measures Meds if any: Prescribed or Continued at Discharge Meds if any: NOT Prescribed or Continued at Discharge Congestive Heart Failure Inclusion Criteria At DC or during hospital stay patient has or had the following: CHF DIAGNOSIS No Discharge Core Measures Meds if any: Prescribed or Continued at Discharge Meds if any: NOT Prescribed or Continued at Discharge Cerebrovascular accident Inclusion Criteria At DC or during hospital stay patient has or had the following: CVA/TIA Diagnosis No Discharge Core Measures Meds if any: Prescribed or Continued at Discharge Meds if any: NOT Prescribed or Continued at Discharge Venous thromboembolism Inclusion Criteria VTE Diagnosis No VTE Type NONE VTE Confirmed by (Test) NONE Discharge Core Measures - Per Current guidelines, there needs to be overlap - treatment for the first 5 days of Warfarin therapy. - If discharged on Warfarin prior to 5 days of - overlap therapy, the patient will need to be - assessed for post discharge needs including - *Post discharge parental anticoagulation - *Warfarin and/or parental anticoagulation education - *Follow up date to check INR post discharge At least 5 days overlap therapy as Inpatient No Meds if any: Prescribed or Continued at Discharge Note: Overlap Therapy is Warfarin and Anticoagulant Meds if any: NOT Prescribed or Continued at Discharge
[2017-09-21] MEDS ORDERED: AZITHROMYCIN250 M1 PO ×2 (10:19→11:19)
[2017-09-22] MEDS ORDERED: PREDNISONE10 M2 PO (19:33)
== END 2017-09-21 12:06 | DRG 192 ==
LOC: ERH 19:21 → 2NA 22:42 → ERHI 22:42 → ENRESERV 23:22 → 2NA 09-19 00:43 → ENPENDDIS 09-21 11:18 → 2NA 09-21 12:06
PROVIDERS: Physician Assistant; Student in an Organized Health Care Education/Training Program
DX: J44.1 Chronic obstructive pulmonary disease with (acute) exacerbation (principal); E11.9 Type 2 diabetes mellitus without complications; I10 Essential (primary) hypertension; Z87.891 Personal history of nicotine dependence; Z79.84 Long term (current) use of oral hypoglycemic drugs; Z77.090 Contact with and (suspected) exposure to asbestos
CPT/HCPCS: 2NAP; ERO; 36592; 71046; 81001; 87040; 93005; 93010; 96374; 96375; J0456; J0696; J1650; J2920; J2930; J3490; J7040